=== PATIENT | female | born 1980 | race Caucasian/White ===

== ENCOUNTER 2016-06-30 14:23 | Emergency (ER) | payer BC, OTHER ==
[2016-06-30 17:12] VITALS: BP 117/77
[2016-06-30] MEDS ORDERED: Ketorolac 30 MG/ML SDV IVPUSH ONE (17:32)
[2016-06-30] MEDS ORDERED: Ondansetron 4 MG/2 ML SDV IV ONE (17:32)
[2016-06-30] MEDS ORDERED: Sodium Chloride 0.9% 1,000 ML IV ONE (17:32)
[2016-06-30] MEDS ORDERED: Butorphanol 2 MG/ML SDV IVPUSH ONE (17:33)
[2016-06-30] MEDS ORDERED: Sodium Chloride 0.9% 10 ML Syringe FLUSH PRN (17:33)
--- NOTE | 2016-06-30 19:05 | EDM.PDOC ---
Scribed by Chanelle Sheriff 06/30/16 [id number] for Johan Smith MD ED HPI HEADACHE COMPLAINT - General Chief Complaint: Headache Stated Complaint: MIGRAINE Time Seen by Provider: 06/30/16 17:15 Source of Information: Reports: Patient, RN, RN notes reviewed History Limitations: Reports: No limitations - History of Present Illness INITIAL COMMENTS - FREE TEXT/NARRATIVE: Complaining of onset of headache yesterday at back of head with photophobia and nausea. No improvement with NSAIDS, Excedrin migraine or Tylenol. Patient states current headache is "exactly the same" as her past migraines. Symptom Onset Date: 06/29/16 Severity: Reports: severe, similar to past headaches Associated Symptoms: Reports: denies other symptoms - Related Data Allergies/ADRs: Allergies Allergy/AdvReac Type Severity Reaction Status Date / Time No Known Allergies Allergy Unverified 07/03/14 19:19 Home Meds: Home Meds Multivitamin [Multivitamins] 1 tab PO DAILY 03/11/14 [History] Multivitamin [One Daily] 2 each PO DAILY 07/03/14 [History] Montelukast [Singulair] 10 mg PO DAILY 06/30/16 [History] Past Medical History HEENT History: Reports: Impaired vision, Other (see below) (migraine headache) Endocrine/Metabolic History: Reports: Obesity/BMI 30+ - Past Surgical History GI Surgical History: Reports: Cholecystectomy, Other (see below) Other GI Surgeries/Procedures: endometrial removal Social & Family History - Family History Family Medical History: Noncontributory - Tobacco Use Smoking Status *Q: Never Smoker Second Hand Smoke Exposure: No - Caffeine Use Caffeine Use: Reports: Coffee, Soda - Recreational Drug Use Recreational Drug Use: No ED ROS GENERAL - Review of Systems Review Of Systems: ROS reveals no pertinent complaints other than HPI. - Physical Exam Exam: See Below Exam Limited By: No limitations General Appearance: obese Eye Exam: bilateral eye: normal inspection, other (photophobia) Ears: normal external exam, normal canal, hearing grossly normal, normal TMs Nose: normal inspection, normal mucosa, no blood Throat/Mouth: Normal inspection, Normal lips, Normal teeth, Normal gums, Normal oropharynx, Normal voice, No airway compromise Head Exam: atraumatic, normocephalic, other (photophobic) Neck: normal inspection, supple, non-tender, full range of motion Respiratory/Chest: no respiratory distress, lungs clear, normal breath sounds, no accessory muscle use, chest non-tender Cardiovascular: normal peripheral pulses, regular rate, rhythm, no edema, no gallop, no JVD, no murmur, no rub GI/Abdominal: other (benign obese) Neuro Exam (Abbreviated): alert, oriented, CN II-XII intact, normal cognition, normal gait, normal reflexes, no motor/sensory deficits Back Exam: normal inspection, full range of motion, NT Extremities: normal inspection, normal range of motion, non-tender, no pedal edema, normal capillary refill Psychiatric: normal affect, normal mood Skin Exam: Warm, Dry, Intact, Normal color Course - Vital Signs Last Recorded V/S: Last Vital Signs Temp 37.1 C 06/30/16 17:11 Pulse 82 06/30/16 17:11 Resp 16 06/30/16 17:11 BP 117/77 06/30/16 17:11 Pulse Ox 98 06/30/16 17:11 - Orders/Labs/Meds Orders: Active Orders 24 hr Category Date Time Status Peripheral IV Care [RC] . DIRECTED Care 06/30/16 17:33 Active Sodium Chloride 0.9% [Saline Flush] Med 06/30/16 17:33 Active 10 ml FLUSH ASDIRECTED PRN Peripheral IV Insertion Adult [OM.PC] Stat Oth 06/30/16 17:32 Ordered Medication Orders Sodium Chloride (Saline Flush) 10 ml FLUSH ASDIRECTED PRN PRN Reason: Keep Vein Open Last Admin: 06/30/16 17:55 Dose: 10 ml Meds: Medications Generic Name Dose Route Start Last Admin Trade Name Freq PRN Reason Stop Dose Admin Sodium Chloride 10 ml 06/30/16 17:33 06/30/16 17:55 Saline Flush FLUSH 10 ml ASDIRECTED PRN Administration Keep Vein Open Discontinued Medications Generic Name Dose Route Start Last Admin Trade Name Freq PRN Reason Stop Dose Admin Butorphanol Tartrate 2 mg 06/30/16 17:33 06/30/16 17:54 Stadol IVPUSH 06/30/16 17:34 2 mg ONETIME ONE Administration Sodium Chloride 1,000 mls @ 999 mls/hr 06/30/16 17:32 06/30/16 17:54 Normal Saline IV 06/30/16 18:32 999 mls/hr .BOLUS ONE Administration Ketorolac Tromethamine 30 mg 06/30/16 17:32 06/30/16 17:53 Toradol IVPUSH 06/30/16 17:33 30 mg ONETIME ONE Administration Ondansetron HCl 4 mg 06/30/16 17:32 06/30/16 17:54 Zofran IV 06/30/16 17:33 4 mg ONETIME ONE Administration Departure - Departure Time of Disposition: 19:04 Disposition: Home, Self-Care 01 Condition: good Clinical Impression: Migraine Qualifiers: Migraine type: unspecified Status migrainosus presence: without status migrainosus Intractability: intractable Qualified Code(s): G43.919 - Migraine, unspecified, intractable, without status migrainosus Instructions: Recurrent Migraine Headache, [id number] Forms: ED Department Discharge Additional Instructions: RX Reglan 10mg. RX Benadryl 125mg. Follow up in clinic if needed for recheck this week. - My Orders Last 24 Hours: My Active Orders 06/30/16 17:32 Peripheral IV Insertion Adult [OM.PC] Stat 06/30/16 17:33 Peripheral IV Care [RC] . DIRECTED Sodium Chloride 0.9% [Saline Flush] 10 ml FLUSH ASDIRECTED PRN - Assessment/Plan Last 24 Hours: My Active Orders 06/30/16 17:32 Peripheral IV Insertion Adult [OM.PC] Stat 06/30/16 17:33 Peripheral IV Care [RC] . DIRECTED Sodium Chloride 0.9% [Saline Flush] 10 ml FLUSH ASDIRECTED PRN I have read and agree with the documentation that has been completed regarding this visit. By signing this record, I attest that the documentation was completed in my physical presence and is an accurate record of the encounter.
== END 2016-06-30 19:19 | disposition home or self-care (01) ==
LOC: DL.ED 14:23
DX: G43.919 Migraine, unspecified, intractable, without status migrainosus (principal); E66.9 Obesity, unspecified; Z90.49 Acquired absence of other specified parts of digestive tract; Z79.899 Other long term (current) drug therapy
CPT/HCPCS: 96361; 96374; 96375; 99283; J0595; J1885; J2405; J7030; J7050

== ENCOUNTER 2018-07-18 08:48 | Emergency (ER) | payer OTHER ==
[2018-07-18 08:56] VITALS: BP 142/89; PULSE 72
--- NOTE | 2018-07-18 09:23 | EDM.PDOC ---
ED HPI GENERAL MEDICAL PROBLEM - General Chief Complaint: Chest Pain Stated Complaint: SOB/CHEST PAIN/LIGHT HEADED Time Seen by Provider: 07/18/18 09:15 Source of Information: Reports: Patient History Limitations: Reports: No Limitations - History of Present Illness INITIAL COMMENTS - FREE TEXT/NARRATIVE: Patient is a 37 y/o female with PMH of cholecystitis and endometriosis. Presents with right sided chest pain. Patient says her legs felt weak most of yesterday. When she got home she didn't feel great, but had no specific sx other than the bilateral leg weakness. At around 1030pm she started having right sided chest pain. Her leg weakness and pain got worse. She felt like her heart was beating really fast. She could not sleep. The pain varies between 6-9 not associated with activity of food. This morning she had diarrhea, chest pain is still present, leg weakness/pain is still present, right arm is tingling and weak, and she's lightheaded. She has epigastric and left sided abdominal pain. Sometimes the chest pain worsens with deep breathing. She took her daughter to daycare this morning and then came to the ER because she felt very lightheaded and weak. The chest pain radiates to the back and feels like a lot of pressure. Patient was taking OCP's a few months ago, but only took them for a couple weeks. Patient denies any tobacco use and only occasional alcohol use. Patient also has a bump on the right side of her upper sternum. She asked her daughter's physician about the bump and she told her to watch it for now. Onset: Sudden Location: Reports: Abdomen, Back Quality: Reports: Pressure Improves with: Reports: None Worsens with: Reports: Breathing, Movement Associated Symptoms: Reports: Chest Pain, Shortness of Breath, Weakness. 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 Denies: Fever HEENT: Reports: Other (seasonal allergies). Denies: Rhinitis, Throat Pain Respiratory: Reports: Shortness of Breath. Denies: Cough Cardiovascular: Reports: Chest Pain, Dyspnea on Exertion, Lightheadedness, Palpitations. Denies: Edema, Syncope GI/Abdominal: Reports: Abdominal Pain, Diarrhea. Denies: Bloody Stool, Constipation, Nausea, Vomiting Musculoskeletal: Reports: Leg Pain (calves ), Muscle Pain, Other (no erythema) ED EXAM, GENERAL - Physical Exam Exam: See Below Free Text/Narrative:: small, mobile mass on the sternum Exam Limited By: No Limitations General Appearance: Alert, WD/WN, No Apparent Distress Eye Exam: Bilateral Eye: EOMI, Normal Inspection, PERRL Ears: Normal External Exam Nose: Normal Inspection, No Blood Head: Atraumatic, Normocephalic Neck: Normal Inspection, Supple, Non-Tender. No: Lymphadenopathy (L), Lymphadenopathy (R) Respiratory/Chest: Lungs Clear, Normal Breath Sounds, No Accessory Muscle Use, Other (chest is tender to palpation on right side). No: Respiratory Distress, Decreased Breath Sounds Cardiovascular: Normal Peripheral Pulses, Regular Rate, Rhythm, No Edema, No Murmur GI/Abdominal: Normal Bowel Sounds, Soft, No Organomegaly, No Distention, No Mass , Tender (epigatric area as well as left abdomen) Back Exam: Normal Inspection, Other (tender to palpation under the right scapula ) Extremities: Normal Inspection, Normal Range of Motion, Leg Pain (calves tender to palpation bilatterally), Other (movement and strength of LE and UE is normal) . No: Pedal Edema Neurological: Alert, Oriented Psychiatric: Normal Affect, Normal Mood Skin Exam: Warm, Dry, Intact, Normal Color Lymphatic: No Adenopathy EKG INTERPRETATION Rhythm: NSR [place]: Normal P-Wave: Present QRS: Normal ST-T: Normal QT: Normal Comparison: NA - No Prior EKG Course - Vital Signs Last Recorded V/S: Last Vital Signs Temp 98.6 F 07/18/18 08:51 Pulse 72 07/18/18 08:51 Resp 18 07/18/18 08:51 BP 142/89 H 07/18/18 08:51 Pulse Ox 98 07/18/18 08:51 - Orders/Labs/Meds Orders: Active Orders 24 hr Category Date Time Status EKG Documentation Completion [RC] URGENT Care 07/18/18 08:59 Active Labs: Laboratory Tests 07/18/18 07/18/18 07/18/18 Range/Units 09:10 09:10 09:10 WBC 7.1 (5.0-10.0) 10^3/uL RBC 4.63 (4.2-5.4) 10^6/uL Hgb 12.1 D (12.0-16.0) g/dL Hct 37.8 (37.0-47.0) % MCV 81.6 D (80-100) fL MCH 26.1 L (27.0-34.0) pg MCHC 32.0 L (33.0-35.0) g/dL Plt Count 281 D (150-450) 10^3/uL Neut % (Auto) 54.3 (42.2-75.2) % Lymph % (Auto) 34.4 (20.5-50.1) % [place] % (Auto) 6.5 (2-8) % Eos % (Auto) 4.4 H (1.0-3.0) % Baso % (Auto) 0.4 (0.0-1.0) % D-Dimer, Quantitative 167 (0-400) ng/mL Sodium 136 (135-145) mmol/L Potassium 4.0 (3.6-5.0) mmol/L Chloride 102 (101-111) mmol/L Carbon Dioxide 24.0 (21.0-31.0) mmol/L Anion Gap 14.0 BUN 15 (7-18) mg/dL Creatinine 1.0 (0.6-1.3) mg/dL Est Cr Clr Drug Dosing 62.48 mL/min Estimated GFR (MDRD) > 60 BUN/Creatinine Ratio 15.00 Glucose 93 (74-105) mg/dL Calcium 9.9 (8.4-10.2) mg/dl Total Bilirubin 0.4 (0.2-1.0) mg/dL AST 24 (10-42) IU/L ALT 28 (10-60) IU/L Alkaline Phosphatase 86 (42-121) IU/L Troponin I < 0.02 (0.00-0.02) ng/ml Total Protein 7.7 (6.7-8.2) g/dl Albumin 3.9 (3.2-5.5) g/dl Globulin 3.8 Albumin/Globulin Ratio 1.03 Amylase (28-100) U/L Lipase (22-51) U/L / Range/Units 09:10 WBC (5.0-10.0) 10^3/uL RBC (4.2-5.4) 10^6/uL Hgb (12.0-16.0) g/dL Hct (37.0-47.0) % MCV (80-100) fL MCH (27.0-34.0) pg MCHC (33.0-35.0) g/dL Plt Count (150-450) 10^3/uL Neut % (Auto) (42.2-75.2) % Lymph % (Auto) (20.5-50.1) % [place] % (Auto) (2-8) % Eos % (Auto) (1.0-3.0) % Baso % (Auto) (0.0-1.0) % D-Dimer, Quantitative (0-400) ng/mL Sodium (135-145) mmol/L Potassium (3.6-5.0) mmol/L Chloride (101-111) mmol/L Carbon Dioxide (21.0-31.0) mmol/L Anion Gap BUN (7-18) mg/dL Creatinine (0.6-1.3) mg/dL Est Cr Clr Drug Dosing mL/min Estimated GFR (MDRD) BUN/Creatinine Ratio Glucose (74-105) mg/dL Calcium (8.4-10.2) mg/dl Total Bilirubin (0.2-1.0) mg/dL AST (10-42) IU/L ALT (10-60) IU/L Alkaline Phosphatase (42-121) IU/L Troponin I (0.00-0.02) ng/ml Total Protein (6.7-8.2) g/dl Albumin (3.2-5.5) g/dl Globulin Albumin/Globulin Ratio Amylase 71 (28-100) U/L Lipase 28 (22-51) U/L Meds: Medications Discontinued Medications Generic Name Dose Route Start Last Admin Trade Name Luz PRN Reason Stop Dose Admin Al Hydroxide/Mg Hydroxide 30 ml 07/18/18 10:01 07/18/18 10:04 Gi Cocktail PO 07/18/18 10:02 30 ml ONETIME ONE Administration Departure - Departure Time of Disposition: 10:18 Disposition: Home, Self-Care 01 Condition: Good Clinical Impression: Reflux, Chest wall pain Musculoskeletal arm pain Qualifiers: Laterality: right Qualified Code(s): M79.601 - Pain in right arm - Discharge Information *PRESCRIPTION DRUG MONITORING PROGRAM REVIEWED*: Not Applicable *COPY OF PRESCRIPTION DRUG MONITORING REPORT IN PATIENT GERARDO: Not Applicable Forms: ED Department Discharge Additional Instructions: Provided a prescription for Omeprazole, instructed to take once per day. Discussed chest pain likely being musculoskeletal in origin. Can take Tylenol or Ibuprofen for right chest pain, back pain and this should improve the right arm tingling. Follow-up with primary care provider for the sternal bump.
[2018-07-18 09:45] LABS: CHLORIDE,CL 102 mmol/L (101-111); SODIUM,NA 136 mmol/L (135-145)
[2018-07-18] MEDS ORDERED: GI Cocktail Oral Solution 30 ML PO ONE (10:01)
--- NOTE | 2018-07-18 10:06 | CR ---
Clinical history: 37-year-old female with chest pain and shortness of breath. Interpretation: (PA/lateral projection) External library monitor leads. Normal cardiac silhouette without cephalization of vascular flow, signs of alveolar edema or dependent pleural effusion. No lung mass, hilar lymphadenopathy or focal lobar pneumonia. No atelectasis/collapse. No pneumothorax. CONCLUSION: No acute cardiopulmonary abnormality.
== END 2018-07-18 10:36 | disposition home or self-care (01) ==
LOC: DL.ED 08:48
DX: K21.9 Gastro-esophageal reflux disease without esophagitis (principal); M79.601 Pain in right arm; E66.9 Obesity, unspecified; Z90.49 Acquired absence of other specified parts of digestive tract
CPT/HCPCS: 36415; 71046; 80053; 82150; 83690; 84484; 85025; 85379; 93005; 99285; A9270

== ENCOUNTER 2019-05-05 19:46 | Emergency (ER) | payer OTHER ==
[2019-05-05 19:59] VITALS: BP 113/58; PULSE 100
[2019-05-05] MEDS ORDERED: Acetaminophen 325 MG Tab PO ONE (20:59)
[2019-05-05 21:01] LABS: ANION GAP 14.9 mEq/L (7-13)
[2019-05-05] MEDS ORDERED: Oseltamivir 75 MG Cap PO ONE (21:10)
--- NOTE | 2019-05-05 21:14 | EDM.PDOC ---
ED HPI GENERAL MEDICAL PROBLEM - General Chief Complaint: Respiratory Problem Stated Complaint: COUGHING, CHEST PAIN Time Seen by Provider: 05/05/19 21:00 Source of Information: Reports: Patient History Limitations: Reports: No Limitations - History of Present Illness INITIAL COMMENTS - FREE TEXT/NARRATIVE: This 38 yo female patient reports to the ED due to feeling head congestion 4 days ago, but today she started to have fevers, chills, a cough and diffuse body aches. The patient reports she has a history of sinus infections which is what her current symptoms started like, but her symptoms progressed today. The patient reports her daughter has had similar symptoms and was taken to [facility] in [place], but tested negative for everything. 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 ED EXAM, GENERAL - Physical Exam Exam: See Below Exam Limited By: No Limitations General Appearance: Alert, WD/WN, Moderate Distress, Obese Eye Exam: Bilateral Eye: EOMI, Normal Inspection, PERRL Ears: Normal External Exam, Normal Canal, Hearing Grossly Normal, Normal TMs Nose: Normal Inspection, Normal Mucosa, No Blood Throat/Mouth: Normal Inspection, Normal Lips, Normal Teeth, Normal Gums, Normal Oropharynx, Normal Voice, No Airway Compromise Head: Atraumatic, Normocephalic Neck: Normal Inspection, Supple, Non-Tender, Full Range of Motion Respiratory/Chest: No Respiratory Distress, Lungs Clear, Normal Breath Sounds, No Accessory Muscle Use, Chest Non-Tender Cardiovascular: Normal Peripheral Pulses, Regular Rate, Rhythm, No Edema, No Gallop, No JVD, No Murmur, No Rub GI/Abdominal: Normal Bowel Sounds, Soft, Non-Tender, No Organomegaly, No Distention, No Abnormal Bruit, No Mass (Female) Exam: Deferred Rectal (Female) Exam: Deferred Back Exam: Normal Inspection, Full Range of Motion, NT Extremities: Normal Inspection, Normal Range of Motion, Non-Tender, Normal Capillary Refill, No Pedal Edema Neurological: Alert, Oriented, CN II-XII Intact, Normal Cognition, Normal Gait, Normal Reflexes, No Motor/Sensory Deficits Psychiatric: Normal Affect, Normal Mood Skin Exam: Increased Warmth Lymphatic: No Adenopathy Course - Vital Signs Last Recorded V/S: Last Vital Signs Temp 38.5 C H 05/05/19 21:03 Pulse 100 05/05/19 19:54 Resp 18 05/05/19 19:54 BP 113/58 L 05/05/19 19:54 Pulse Ox 93 L 05/05/19 19:54 - Orders/Labs/Meds Orders: Active Orders 24 hr Category Date Time Status CULTURE BLOOD [BC] Stat Lab 05/05/19 20:23 Received Isolation [COMM] Routine Oth 05/05/19 20:04 Active Labs: Laboratory Tests 05/05/19 05/05/19 05/05/19 Range/Units 20:23 20:23 20:23 WBC 4.7 L (5.0-10.0) 10^3/uL RBC 4.02 L (4.2-5.4) 10^6/uL Hgb 11.2 L (12.0-16.0) g/dL Hct 34.2 L (37.0-47.0) % MCV 85.1 D (80-100) fL MCH 27.9 (27.0-34.0) pg MCHC 32.7 L (33.0-35.0) g/dL Plt Count 169 D (150-450) 10^3/uL Neut % (Auto) 76.2 H (42.2-75.2) % Lymph % (Auto) 10.1 L (20.5-50.1) % [place] % (Auto) 12.2 H (2-8) % Eos % (Auto) 1.3 (1.0-3.0) % Baso % (Auto) 0.2 (0.0-1.0) % Sodium 134 L (136-145) mmol/L Potassium 3.9 (3.5-5.1) mmol/L Chloride 99 L (101-111) mmol/L Carbon Dioxide 24 (21-32) mmol/L Anion Gap 14.9 H (7-13) mEq/L BUN 14 (7-18) mg/dL Creatinine 1.11 H (0.55-1.02) mg/dL Est Cr Clr Drug Dosing 55.73 mL/min Estimated GFR (MDRD) 54 BUN/Creatinine Ratio 12.6 (No establ ref range) Glucose 85 (74-99) mg/dL Lactic Acid 0.8 (0.4-2.0) mmol/L Calcium 8.4 L (8.5-10.1) mg/dL Total Bilirubin 0.3 (0.2-1.0) mg/dL AST 26 (15-37) U/L ALT 34 (14-59) U/L Alkaline Phosphatase 88 (46-116) U/L Total Protein 7.1 (6.4-8.2) g/dL Albumin 3.6 (3.4-5.0) g/dL Globulin 3.5 Albumin/Globulin Ratio 1.0 Meds: Medications Discontinued Medications Generic Name Dose Route Start Last Admin Trade Name Freq PRN Reason Stop Dose Admin Acetaminophen 650 mg 05/05/19 20:59 05/05/19 21:02 Tylenol PO 05/05/19 21:00 650 mg NOW ONE Administration Oseltamivir Phosphate 75 mg 05/05/19 21:10 Tamiflu PO 05/05/19 21:11 ONETIME ONE Departure - Departure Time of Disposition: 21:12 Disposition: Home, Self-Care 01 Condition: Fair Clinical Impression: Influenza A - Discharge Information *PRESCRIPTION DRUG MONITORING PROGRAM REVIEWED*: Not Applicable *COPY OF PRESCRIPTION DRUG MONITORING REPORT IN PATIENT GERARDO: Not Applicable Instructions: Influenza, Adult, [id number] Forms: ED Department Discharge Care Plan Goals: The patient was advised of the examination and lab results during the visit. The patient was given an oral dose of Tamiflu (75 mg) while in the ED. The patient was discharged with a script for Tamiflu (75 mg) #9 to take 1 by mouth 2 times per day. The patient may taken Tylenol and ibuprofen as directed for temporary symptom relief. The patient was advised not to return to work until she does not have a fever for 24 hours without taking Tylenol or ibuprofen. If the patient has any additional symptoms or concerns, the patient should either return to the emergency department or visit her primary care facility. Sepsis Event Note - Evaluation Sepsis Screening Result: No Definite Risk - Focused Exam Vital Signs: Vital Signs Temp Pulse Resp BP Pulse Ox 05/05/19 21:03 38.5 C H 05/05/19 19:54 38.3 C H 100 18 113/58 L 93 L Date Exam was Performed: 05/05/19 Time Exam was Performed: 21:14 - My Orders Last 24 Hours: My Active Orders 05/05/19 20:04 Isolation [COMM] Routine 05/05/19 20:23 CULTURE BLOOD [BC] Stat - Assessment/Plan Last 24 Hours: My Active Orders 05/05/19 20:04 Isolation [COMM] Routine 05/05/19 20:23 CULTURE BLOOD [BC] Stat
== END 2019-05-05 21:26 | disposition home or self-care (01) ==
LOC: DL.ED 19:46
DX: J10.1 Influenza due to other identified influenza virus with other respiratory manifestations (principal); E66.9 Obesity, unspecified; Z90.49 Acquired absence of other specified parts of digestive tract
CPT/HCPCS: 36415; 80053; 83605; 85025; 87040; 87804; 99283; A9270

== ENCOUNTER 2021-03-10 07:38 | Emergency (ER) | payer OTHER ==
[2021-03-10 07:57] VITALS: BP 123/79; PULSE 78
[2021-03-10] MEDS ORDERED: Ketorolac 30 MG/ML SDV IVPUSH ONE (08:03)
[2021-03-10] MEDS ORDERED: Ondansetron 4 MG/2 ML SDV IVPUSH ONE (08:03)
[2021-03-10] MEDS ORDERED: Sodium Chloride 0.9% 1,000 ML IV ONE (08:03)
[2021-03-10 09:03] LABS: CORONAVIRUS COVID-19 NAA NEGATIVE (NEGATIVE)
[2021-03-10] MEDS ORDERED: Butorphanol 2 MG/ML SDV IVPUSH ONE (09:19)
== END 2021-03-10 09:55 | disposition home or self-care (01) ==
LOC: DL.ED 07:38
DX: G43.919 Migraine, unspecified, intractable, without status migrainosus (principal); E66.9 Obesity, unspecified; Z20.822 Contact with and (suspected) exposure to COVID-19
CPT/HCPCS: 0240U; 96374; 96375; 99284; J0595; J1885; J2405; J7030

== ENCOUNTER 2021-06-19 17:14 | Observation (INO) | payer OTHER ==
[2021-06-19 17:50] LABS: PTT,PARTIAL THROMBOPLSTIN TIME 23.6 SEC (22.0-34.0)
[2021-06-19 17:55] LABS: ANION GAP 10.7 mEq/L (7-13); CHLORIDE,CL 102 mmol/L (98-107); SODIUM,NA 138 mmol/L (136-145)
[2021-06-19] MEDS ORDERED: Iopamidol 755 Mg/ML 100 ML Bottle IVPUSH ONE (18:07)
[2021-06-19] MEDS ORDERED: Ondansetron 4 MG/2 ML SDV IVPUSH ONE (19:00)
[2021-06-19] MEDS ORDERED: Morphine 2 MG/ML SYRINGE IVPUSH ONE (20:09)
[2021-06-19] MEDS ORDERED: Famotidine 20 MG/2 ML SDV IVPUSH ONE (20:38)
[2021-06-19] MEDS ORDERED: Ondansetron 4 MG/2 ML SDV IVPUSH PRN (21:50)
[2021-06-19] MEDS ORDERED: Bisacodyl 5 MG Tab PO PRN (21:50)
[2021-06-19] MEDS ORDERED: Magnesium Hydroxide 400 MG/5 ML Susp 30 ML Cup PO PRN (21:50)
[2021-06-19] MEDS ORDERED: Albuterol/Ipratropium 3.0-0.5 MG/3 ML Neb Soln NEB PRN (21:50)
[2021-06-19] MEDS ORDERED: Acetaminophen/HYDROcodone 325-5 MG Tab PO PRN (21:50)
[2021-06-19] MEDS ORDERED: Polyethylene Glycol 3350 Powder 17 GM Packet PO PRN (21:50)
[2021-06-19] MEDS ORDERED: HYDROmorphone 0.5 MG/0.5 ML Syringe IVPUSH PRN (21:50)
[2021-06-19] MEDS ORDERED: Zolpidem 5 MG Tab PO PRN (21:50)
[2021-06-19] MEDS ORDERED: Ibuprofen 600 MG Tab PO PRN (21:50)
[2021-06-19] MEDS ORDERED: Nitroglycerin 0.4 MG Tab.SL SL PRN (21:57)
[2021-06-19] MEDS ORDERED: Pantoprazole 40 MG Vial IVPUSH ONE (21:58)
[2021-06-19] MEDS ORDERED: Metoclopramide 10 MG/2 ML SDV IVPUSH ONE (22:02)
[2021-06-19] MEDS ORDERED: Heparin Sodium 5,000 Units/ML Vial IVPUSH ONE (22:34)
[2021-06-19] MEDS ORDERED: traZODone 50 MG Tab PO ONE (22:37)
[2021-06-19] MEDS ORDERED: traZODone 50 MG Tab PO PRN (22:37)
[2021-06-19] MEDS ORDERED: LORazepam 0.5 MG Tab PO PRN (22:37)
[2021-06-19] MEDS ORDERED: Nitroglycerin/D5W 25 MG/250 ML BOTTLE IV SCH (22:45)
[2021-06-19] MEDS ORDERED: Heparin Sodium/0.45% NaCl 25,000 UNITS/500 ML BAG IV SCH (22:45)
[2021-06-19] MEDS ORDERED: Sodium Chloride 0.9% 1,000 ML IV SCH (23:30)
[2021-06-19] MEDS ORDERED: Sodium Chloride 0.9% 500 ML IV ONE (23:30)
[2021-06-20] MEDS: Acetaminophen 325 MG Tab PO PRN ×2 (05:00→09:39)
[2021-06-20] MEDS ORDERED: Metoclopramide 10 MG/2 ML SDV IVPUSH ONE (06:00)
[2021-06-20] MEDS ORDERED: Pantoprazole 40 MG Vial IVPUSH SCH (06:00)
[2021-06-20 06:36] LABS: ANION GAP 12.2 mEq/L (7-13); CHLORIDE,CL 106 mmol/L (98-107); SODIUM,NA 142 mmol/L (136-145)
[2021-06-20] MEDS ORDERED: Heparin Sodium 5,000 Units/ML Vial ONE (07:31)
[2021-06-20] MEDS ORDERED: Heparin Sodium 5,000 Units/ML Vial IVPUSH ONE ×2 (07:32→12:00)
[2021-06-20] MEDS ORDERED: Acetaminophen/Butalbital/Caffeine 325-50-40 MG Tab PO PRN (09:09)
[2021-06-20] MEDS ORDERED: Nitroglycerin/D5W 25 MG/250 ML BOTTLE IV SCH (09:50)
[2021-06-20 16:26] VITALS: BP 98/57; PULSE 69
== END 2021-06-20 18:43 | disposition home or self-care (01) ==
LOC: DL.ED 17:14 → DL.MS 20:45
PROVIDERS: ADMIT Internal Medicine; ATTEND Internal Medicine
DX: R07.9 Chest pain, unspecified (principal); E66.01 Morbid (severe) obesity due to excess calories; M94.0 Chondrocostal junction syndrome [Tietze]; K21.9 Gastro-esophageal reflux disease without esophagitis; Z79.899 Other long term (current) drug therapy; Z90.49 Acquired absence of other specified parts of digestive tract; Z68.41 Body mass index [BMI] 40.0-44.9, adult; Z86.16 Personal history of COVID-19
CPT/HCPCS: 36415; 71045; 71260; 80048; 80053; 80061; 83605; 83735; 84484; 85025; 85379; 85610; 85730; 86140; 87040; 93005; 93010; 96374; 96375; 99217; 99219; 99284; 99285-25; A9270-GY; C9113; J1170; J1644; J2270; J2405; J2765; J3490; J7030; Q9967